=== PATIENT | female | born 1990 | race Two or more races ===

== ENCOUNTER 2017-01-15 18:20 | Emergency (ER) | payer MEDICAID ==
[~2017-01-15] VITALS: Ht 157.5 cm; Wt 63.5 kg
[~2017-01-15 18:20] MED LIST: METR500T14; NITR-52; OMEP20TA44
[2017-01-15 18:36] VITALS: BP 111/70
== END 2017-01-15 20:25 | disposition home or self-care (01) ==
LOC: ER 18:21
DX: K61.1 Rectal abscess (principal); K21.9 Gastro-esophageal reflux disease without esophagitis

== ENCOUNTER 2018-01-27 16:32 | Emergency (ER) | payer MEDICAID ==
[~2018-01-27] VITALS: Ht 157.5 cm; Wt 68.9 kg
[2018-01-27 16:53] VITALS: BP 133/71
[2018-01-27] MEDS ORDERED: LIDOCAINE 1% HCL (LOCAL ANESTH.) INJ 20ML MDV IJ STA (17:21)
== END 2018-01-27 17:50 | disposition home or self-care (01) ==
LOC: ER 16:37
DX: N76.4 Abscess of vulva (principal); K21.9 Gastro-esophageal reflux disease without esophagitis
CPT/HCPCS: 56405; 87070

== ENCOUNTER → 2019-04-27 | Emergency (ER) | payer MEDICAID ==
[~2019-04-27] VITALS: Ht 154.9 cm; Wt 68.0 kg
[~2019-04-27] MED LIST changes: +MORPHINE SULF INJ 2 MG/ML SYRINGE 1ML ONE; +ONDANSETRON HCL 4 MG/2 ML VIAL ONE
[2019-04-27 23:19] VITALS: BP 144/75
[2019-04-27 23:26] LABS: Basophils # (auto) 0 uL; Basophils % (auto) 0.4 % (0.0-2.0); Eosinophils # (auto) 0.1 uL; Eosinophils % (auto) 1.3 % (0.0-7.0); Hematocrit 34.8 % (36.0-46.0); Hemoglobin 11.7 g/dL (12.2-16.2); Lymphocytes # (auto) 2.1 uL; Lymphocytes % (auto) 34.7 % (10.0-50.0); Mean Corpuscular Hemoglobin 30.3 pg (28.0-32.0); Mean Corpuscular Hgb Conc. 33.6 g/dL (32.0-36.0); Mean Corpuscular Volume 90.2 fL (80.0-100.0); Monocytes # (auto) 0.4 uL; Monocytes % (auto) 6.6 % (0.0-12.0); Neutrophils # (auto) 3.5 uL; Nucleated Red Blood Cells % 0.1 %; Platelet Count (auto) 212 10^3/uL (140-450); Red Blood Cells 3.86 10^6/uL (4.0-5.20); Red Cell Distribution Width 13.3 % (11.8-14.3); White Blood Cell 6.2 10^3/uL (4.4-10.8)
[2019-04-27 23:46] LABS: Calcium 8.7 mg/dL (8.5-10.1)
[2019-04-27 23:49] LABS: BUN/Creatinine Ratio 15.2; Bilirubin, Total 0.4 mg/dL (0.2-1.0); Total Protein 7.7 g/dL (6.4-8.2)
[2019-04-28] LABS: Urine Bacteria FEW /hpf (None Seen); Urine Blood Negative /uL (Negative); Urine Specific Gravity 1.011 (1.001-1.035); Urine WBC 10 /hpf (0 - 5)
== END | disposition home or self-care (01) ==
LOC: ER 23:01
DX: N39.0 Urinary tract infection, site not specified (principal)
CPT/HCPCS: 36415; 74176; 80053; 81001; 81025; 83690; 85025; 96372; J2405